=== PATIENT | female | born 1975 | race Caucasian/White ===

== ENCOUNTER 2018-05-20 10:33 | Outpatient (CLI) | payer BC ==
--- NOTE | 2018-05-20 11:57 | RAD ---
RIGHT WRIST THREE VIEWS: HISTORY: Right wrist pain. COMPARISON: None. FINDINGS: Three views of the right wrist show no evidence of acute fracture or dislocation. No degenerative ch anges are seen. No soft tissue swelling is seen. IMPRESSION: Unremarkable exam. POS: [facility]
--- NOTE | 2018-05-20 11:57 | RAD ---
THREE VIEWS LEFT WRIST: Comparison: None. History: Left wrist pain. FINDINGS: Three views of the left wrist shows no evidence of acute fracture or dislocation. No degenerative robin nges are seen. No soft tissue swelling is seen. IMPRESSION: Unremarkable exam. POS: [facility]
--- NOTE | 2018-05-20 11:59 | RAD ---
RIGHT HAND THREE VIEWS: CLINICAL HISTORY: Pain. FINDINGS: No evidence of fracture or dislocation. No significant arthropathy. IMPRESSION: No acute osseous abnormality of the right hand. POS: [facility]
--- NOTE | 2018-05-20 12:00 | RAD ---
LEFT HAND THREE VIEWS: HISTORY: Left hand pain. COMPARISON: None. FINDINGS: Three views of the left hand show no evidence of acute fracture or dislocation. No degenerative veras ges are seen. No soft tissue swelling is seen. IMPRESSION: Unremarkable examination. POS: [facility]
== END 2018-05-20 10:34 | disposition home or self-care (01) ==
LOC: RAD 10:33
PROVIDERS: ATTEND Nurse Practitioner Family
DX: M79.641 Pain in right hand (principal); M79.642 Pain in left hand

== ENCOUNTER 2019-10-14 08:57 | Outpatient (CLI) | payer BC ==
--- NOTE | 2019-10-14 11:10 | MRI ---
MRI LUMBAR SPINE WITHOUT CONTRAST: HISTORY: Low back pain and radiculopathy of the lumbar region. FINDINGS: The vertebral body heights and marrow signal are maintained. The conus medullaris ends at the L1-L2 l evel. There is disk desiccation and small focal disk bulge at the L5-S1 level, which may cause imping ement of the nerve roots in the lateral recesses bilaterally. No significant central canal stenosis o r neural foraminal stenosis is seen. The paraspinal musculature is normal. IMPRESSION: Focal disk bulge at the L5-S1 level with probable impingement of the nerve roots in the lateral reces ses bilaterally. POS: [facility]
== END 2019-10-14 08:58 | disposition home or self-care (01) ==
LOC: BICMRI 08:57
PROVIDERS: ATTEND Nurse Practitioner Family
DX: M51.17 Intervertebral disc disorders with radiculopathy, lumbosacral region (principal)
CPT/HCPCS: 72148